=== PATIENT | female | born 1985 | race Caucasian/White ===

== ENCOUNTER 2018-06-20 22:12 | Emergency (ER) | END 2018-06-21 01:14 | disposition home or self-care (01) ==

== ENCOUNTER 2019-05-22 22:50 | Emergency (ER) | payer MEDICAID ==
[~2019-05-22] VITALS: Ht 152.4 cm; Wt 63.4 kg
[~2019-05-22 22:50] MED LIST: NAPR-985 PO
[2019-05-22 23:01] VITALS: Ht 152.4 cm; Wt 63.4 kg
[2019-05-23] MEDS ORDERED: IBUPROFEN 600 MG TAB PO ONE (01:00)
[2019-05-23] MEDS ORDERED: IBUP-1542 PO (02:40)
[2019-05-23 02:52] VITALS: BP 181/94; PULSE 65; RESP 18
--- NOTE | 2019-05-23 05:25 | ERD ---
ER Documentation Chief Complaint Chief Complaint pt reports lump under L arm and arm numbness x 3 days HPI Patient is a 33-year-old female, past medical history of hypertension, presents the ER for concerns of left arm numbness and tingling as well as a lump under her left axilla. Patient states she has had left arm numbness and tingling for the last 3 days. Patient states that the symptoms are constant. Patient states she had a lump for the last 4 days. Patient denies any fevers or chills. Patient denies any unilateral weakness, slurred speech, difficulty ambulating, headaches, nausea, vomiting or LOC. Patient denies any chest pain or shortness of breath. Patient denies any recent travel, history of DVT/PE, unilateral leg swelling, history of OCP use. No recent travel. No sick contacts. ROS All systems reviewed and are negative except as per history of present illness. Medications Home Meds Active Scripts Ibuprofen* (Motrin*) 600 Mg Tab, 600 MG PO Q6, #30 TAB Prov:TAMEKA ISABEL PA-C 05/23/19 Naproxen* (Naprosyn*) 500 Mg Tablet, 500 MG PO BID PRN for PAIN AND/OR INFLAMMATION for 10 Days, #20 TAB Prov:LINDSAY,MELODY 06/21/18 Allergies Allergies: Coded Allergies: No Known Drug Allergies (Verified Allergy, Unknown, 06/20/18) PMhx/Soc History of Surgery: Yes (2 C-SECTIONS) Hx Cardiac Disorders: Yes (HTN) Hx Alcohol Use: No Hx Substance Use: No Hx Tobacco Use: No Smoking Status: Never smoker FmHx Family History: No diabetes Physical Exam Vitals Vital Signs Date Temp Pulse Resp B/P (MAP) Pulse Ox O2 O2 Flow FiO2 Time Delivery Rate 05/23/19 98.2 65 18 181/94 96 Room Air 02:52 (123) 05/23/19 36.8 01:27 05/22/19 98.2 76 16 178/90 98 23:01 (119) Physical Exam GENERAL: Well-developed, well-nourished female. Appears in no acute distress. HEAD: Normocephalic, atraumatic. EYES: Pupils are equally reactive bilaterally. EOMs grossly intact. No conjunctival erythema. ENT: Moist mucous membranes. No uvula deviation. No kissing tonsils. NECK: Supple. No meningismus. Normal range of motion of the neck. CHEST WALL: Tender to palpation of the left chest wall. Pain is reproducible. LUNG: Clear to auscultation bilaterally. No rhonchi, wheezing, rales or coarse breath sounds. HEART: Regular rate and rhythm. No murmurs, rubs or gallops. Equal pulses in bilateral upper extremities. EXTREMITIES: Equal pulses bilaterally. No peripheral clubbing, cyanosis or edema. No unilateral leg swelling. LEFT HUMERUS: No obvious deformity. No redness, swelling, warmth noted. Tender to palpation of biceps and triceps muscles. 2+ RP. NEUROLOGIC: Alert and oriented. Cranial nerves II through XII intact. Equal supervisor filter assembly strength bilaterally. Moving all four extremities without any difficulty. Normal speech. Steady gait. No facial asymmetry. Equal smile. No pronator drift. SKIN: Small round 1 cm movable mass noted in the left axilla. No surrounding erythema or warmth. No streaking. Result Diagram: 05/23/19 0126 05/23/19 0126 Results 24 hrs Laboratory Tests Test 05/23/19 00:49 05/23/19 01:26 POC Beta HCG, Qualitative NEGATIVE White Blood Count 7.3 10^3/ul Red Blood Count 4.77 10^6/ul Hemoglobin 12.1 g/dl Hematocrit 37.3 % Mean Corpuscular Volume 78.2 fl Mean Corpuscular Hemoglobin 25.4 pg Mean Corpuscular Hemoglobin Concent 32.4 g/dl Red Cell Distribution Width 15.0 % Platelet Count 351 10^3/UL Mean Platelet Volume 9.3 fl Immature Granulocytes % 0.300 % Neutrophils % 45.4 % Lymphocytes % 40.2 % Monocytes % 10.0 % Eosinophils % 3.7 % Basophils % 0.4 % Nucleated Red Blood Cells % 0.0 /100WBC Immature Granulocytes # 0.020 10^3/ul Neutrophils # 3.3 10^3/ul Lymphocytes # 3.0 10^3/ul Monocytes # 0.7 10^3/ul Eosinophils # 0.3 10^3/ul Basophils # 0.0 10^3/ul Nucleated Red Blood Cells # 0.0 10^3/ul Sodium Level 143 mmol/L Potassium Level 3.3 mmol/L Chloride Level 107 mmol/L Carbon Dioxide Level 25 mmol/L Anion Gap 11 Blood Urea Nitrogen 9 mg/dl Creatinine 0.59 mg/dl Est Glomerular Filtrat Rate mL/min > 60 mL/min Glucose Level 85 mg/dl Calcium Level 9.0 mg/dl Troponin I < 0.012 ng/ml Current Medications Medications Dose Sig/Deborah Start Time Status Last (Trade) Ordered Route PRN Stop Time Admin Dose Reason Admin Ibuprofen 600 mg ONCE ONCE 05/23/19 DC 05/23/19 (Motrin) PO 01:00 01:27 05/23/19 01:01 Procedures/MDM ED COURSE: The patient was stable throughout ED course. I kept the patient and/or family informed of laboratory and diagnostic imaging results throughout the ED course. EKG: Read by Dr. To, attending physician. EKG shows normal sinus rhythm at a rate of 67 bpm No arrhythmias, acute ST elevations or T wave changes were noted. DIAGNOSTIC IMAGING: Read by radiologist. Patient: DADA GARCES : 1985 Age: 33 Sex: F MR #: [id number] DOS: 05/23/1955 Ordering MD: TAMEKA ISABEL PA-C Location: [facility] Room/Bed: PROCEDURE: One view chest radiograph. CLINICAL INDICATION: Chest pain. TECHNIQUE: An AP view of the chest was obtained. COMPARISON: None. FINDINGS: Mediastinum: Unremarkable. Heart size: Normal. Pulmonary vasculature: No visible engorgement. Lungs: Clear. Costophrenic sulci: Clear. Bony structures: Grossly unremarkable for age. IMPRESSION: 1. Unremarkable single view chest. RPTAT:AAJJ Physician Sam Date Time Electronically viewed and signed by Physician Sam on 05/23/2019 01:34 GW/ CC: TAMEKA ISABEL PA-C [id number] Patient: DADA GARCES : 1985 Age: 33 Sex: F MR #: [id number] DOS: 05/23/1955 Ordering MD: TAMEKA ISABEL PA-C Location: [facility] Room/Bed: PROCEDURE: US left axilla. CLINICAL INDICATION: Mass TECHNIQUE: Multiple sonographic images of the region of concern in the left axilla were obtained utilizing a high-resolution linear array transducer with grayscale and color-flow and Doppler imaging 1 appropriate. The images were reviewed on a high-resolution PACS workstation. COMPARISON: No prior studies are available for comparison. FINDINGS: Imaging of the indicated region of the axilla reveals lobules of subcutaneous adipose tissue. There is no evidence of abnormal fluid collection or solid mass. There is no abnormal blood flow on color flow imaging. No enlarged lymph nodes are identified. IMPRESSION: 1. Unremarkable left axillary ultrasound. RPTAT:AAJJ Physician Sam Date Time Electronically viewed and signed by Physician Sam on 05/23/2019 01:34 GW/ CC: TAMEKA ISABEL PA-C [id number] PROCEDURES: None. MEDICATIONS GIVEN: Ibuprofen Patient tolerated medication well with no adverse reactions. Patient reported improvement in pain. MEDICAL DECISION MAKING: This is a 33-year-old female presents to the ER for concerns of left arm numbn ess and tingling as well as a lump in her left axilla. Patient denies any chest pain or shortness of breath. Patient denied any leg swelling, recent surgeries, travel, exogenous estrogen use. Vital signs were reviewed. Patient was afebrile. Patient was not hypoxic. Cardiac exam was normal. Lung exam was normal. Neuro exam was normal. EKG showed normal sinus rhythm. Reviewed by ED attending. No STEMI. Blood work was obtained. CBC showed no evidence of systemic infection or anemia. BMP showed no severe electrolyte abnormalities except for mild hypokalemia 3.3, no evidence of acidosis, alkalosis, renal injury. Troponin was within normal limits. Urine beta-hCG was negative. Chest x-ray was within normal limits. Soft tissue ultrasound of the left axilla was unremarkable. Lobules of subcutaneous adipose tissue was noted. Formal report above. At this time for the patient's presentation is most consistent with left arm numbness and paresthesias and mild hypokalemia. Patient was advised to eat bananas to increase her potassium levels. Low suspicion for ACS, arrhythmia, pericarditis, pneumothorax, pneumonia, PE, pleural effusion, TIA, CVA, severe electrolyte abnormalities, sepsis. PRESCRIPTIONS: Ibuprofen DISCHARGE: At this time, patient is stable for discharge and outpatient management. I have instructed the patient to follow-up with his/her primary care physician in 1-2 days. If symptoms persist, patient may need to see a specialist for further examinations and testing. I have instructed the patient to promptly return to the ER at any time for any new or worsening symptoms including increased increased pain, fever, nausea, vomiting, numbness, weakness, diaphoresis or LOC. The patient and/or family expressed understanding of and agreement with this plan. All questions were answered. Home care instructions were provided. Patients blood pressure was elevated (>120/80) but appears stable without evidence of hypertensive emergency, hypertensive urgency or end-organ failure. I had discussion with the patient about the risks of hypertension. I have advised the patient to follow up with his/her primary care physician for outpatient monitoring and treatment for hypertension in 2-3 days. I have instructed the patient to return to the ER for any new or worsening symptoms including chest pain, shortness of breath, headache, blurred vision, confusion, nausea, vomiting or LOC. Disclaimer: Inadvertent spelling and grammatical errors are likely due to EHR/dictation software use and do not reflect on the overall quality of patient care. Also, please note that the electronic time recorded on this note does not necessarily reflect the actual time of the patient encounter. Departure Diagnosis: Primary Impression: Lump of axilla Laterality: left Qualified Codes: R22.32 - Localized swelling, mass and lump, left upper limb Additional Impressions: Numbness Arm paresthesia, left Patient Instructions: Paraesthesias Referrals: COMMUNITY CLINICS YOU HAVE RECEIVED A MEDICAL SCREENING EXAM AND THE RESULTS INDICATE THAT YOU DO NOT HAVE A CONDITION THAT REQUIRES URGENT TREATMENT IN THE EMERGENCY DEPARTMENT. FURTHER EVALUATION AND TREATMENT OF YOUR CONDITION CAN WAIT UNTIL YOU ARE SEEN IN YOUR DOCTORS OFFICE WITHIN THE NEXT 1-2 DAYS. IT IS YOUR RESPONSIBILITY TO MAKE AN APPOINTMENT FOR FOLOW-UP CARE. IF YOU HAVE A PRIMARY DOCTOR --you should call your primary doctor and schedule an appointment IF YOU DO NOT HAVE A PRIMARY DOCTOR YOU CAN CALL OUR PHYSICIAN REFERRAL HOTLINE AT IF YOU CAN NOT AFFORD TO SEE A PHYSICIAN YOU CAN CHOSE FROM THE FOLLOWING [facility] [address] [facility] [address] [facility] [address] [facility] [address] [facility] [address] [facility]. [facility] [address] [facility]. [facility] YOU HAVE RECEIVED A MEDICAL SCREENING EXAM AND THE RESULTS INDICATE THAT YOU DO NOT HAVE A CONDITION THAT REQUIRES URGENT TREATMENT IN THE EMERGENCY DEPARTMENT. FURTHER EVALUATION AND TREATMENT OF YOUR CONDITION CAN WAIT UNTIL YOU ARE SEEN IN YOUR DOCTORS OFFICE WITHIN THE NEXT 1-2 DAYS. IT IS YOUR RESPONSIBILITY TO MAKE AN APPOINTMENT FOR FOLOW-UP CARE. IF YOU HAVE A PRIMARY DOCTOR --you should call your primary doctor and schedule and appointment IF YOU DO NOT HAVE A PRIMARY DOCTOR YOU CAN CALL OUR PHYSICIAN REFERRAL HOTLINE AT . IF YOU CAN NOT AFFORD TO SEE A PHYSICIAN YOU CAN CHOSE FROM THE FOLLOWING [facility] INSTITUTIONS: [facility] [address] [place] [address] [facility] [address] [place] [address] [facility] [address] [place] [address] Additional Instructions: Llame al doctor MAANA y colin jayleen MICHAEL PARA DENTRO DE 1-2 DEL CID.Dgale a la sec retaria que nosotros le instruimos hacer esta michael.Avise o llame si zhou condicin se empeora antes de la michael. Regresa aqui si peor o no mejor. TAMEKA ISABEL PA-C May 23, 2019 05:25
== END 2019-05-23 02:54 | disposition home or self-care (01) ==
LOC: FTE 22:50
DX: R22.32 Localized swelling, mass and lump, left upper limb (principal); I10 Essential (primary) hypertension; R20.2 Paresthesia of skin
CPT/HCPCS: 36415; 71045; 76536; 80048; 81025; 84484; 85025; 93005; Z7502; Z7610